=== PATIENT | female | born 1940 ===

== ENCOUNTER → 2020-03-20 06:00 | Outpatient (CLI) | payer OTHER ==
[~2020-03-20 06:00] MED LIST: ASPIR 8181 MG PO; ATACAND HCT 321 EACH PO; DIMENHYDRINATE50 MG PO; DITROPAN XL10 MG PO; HYDRALAZINE HCL50 MG PO; LEVO-T25 MCG PO; LIPITOR80 MG PO; METFORMIN HCL500 M3 PO; PEPCID AC20 MG PO
== END | disposition home or self-care (01) ==
LOC: LAB 06:00 → ADM 03-21 11:30 → EDSTATUS 03-25 11:30 → CIR.AMB 03-25 11:30
PROVIDERS: ATTEND Obstetrics & Gynecology Gynecology
DX: Z01.812 Encounter for preprocedural laboratory examination (principal); D68.8 Other specified coagulation defects; Z20.828 Contact with and (suspected) exposure to other viral communicable diseases; D64.89 Other specified anemias; D78.89 Other postprocedural complications of the spleen

== ENCOUNTER → 2020-04-29 08:39 | Outpatient (CLI) | payer OTHER | END | disposition home or self-care (01) | LOC: LAB 08:39 | PROVIDERS: ATTEND Internal Medicine Hematology & Oncology | DX: D50.8 Other iron deficiency anemias (principal); I10 Essential (primary) hypertension; D68.8 Other specified coagulation defects; E56.1 Deficiency of vitamin K; R97.1 Elevated cancer antigen 125 [CA 125]; R97.8 Other abnormal tumor markers; C56.9 Malignant neoplasm of unspecified ovary; R97.0 Elevated carcinoembryonic antigen [CEA]; N81.6 Rectocele; D51.3 Other dietary vitamin B12 deficiency anemia; D51.1 Vitamin B12 deficiency anemia due to selective vitamin B12 malabsorption with proteinuria; E11.9 Type 2 diabetes mellitus without complications; E03.8 Other specified hypothyroidism; E78.2 Mixed hyperlipidemia ==

== ENCOUNTER 2020-05-26 13:14 | Outpatient (CLI) | payer OTHER | END 2020-05-26 13:19 | disposition home or self-care (01) | LOC: LAB 13:14 | PROVIDERS: ATTEND Internal Medicine Hematology & Oncology | DX: D68.8 Other specified coagulation defects (principal) ==